=== PATIENT | male | born 1950 | race Caucasian/White ===

== ENCOUNTER 2019-01-26 20:53 | Emergency (ER) | payer OTHER, MEDICARE ==
[~2019-01-26] VITALS: Ht 177.8 cm; Wt 99.8 kg
[2019-01-26] MEDS ORDERED: ORPH-16 PO (21:41)
[2019-01-26] MEDS ORDERED: HYDR-3165 PO (21:41)
--- NOTE | 2019-01-26 21:42 | PHYS DOC ---
Past History Past Medical History: CAD, Diabetes Past Medical History CKD3 Smoking: Non-smoker Alcohol Use: Occasionally Drug Use: None Adult General Chief Complaint Chief Complaint: LOWER BACK PAIN OR INJURY HPI HPI Patient is a 68-year-old male presents with lower back pain. He states that the pain started this morning with no inciting event. The pain is bilateral lumbar region worse on the right. He rates it as a 10/10 pain while it spasms, and a 7/ 10 pain while his back is having spasms. He took ibuprofen which did not help. Symptoms have not varied based on the time of day. He states there is pain radiating down both lateral and posterior thighs to the knee. This is a known issue because the patient has chronic sciatica and low back pain with discopathy. Denies loss of bowel/bladder. Denies hematuria or dysuria. Review of Systems Review of Systems Constitutional: Denies fever or chills [] Eyes: Denies change in visual acuity, redness, or eye pain [] HENT: Denies nasal congestion or sore throat [] Respiratory: Denies cough or shortness of breath [] Cardiovascular: Denies chest pain or palpitations GI: Denies abdominal pain, nausea, vomiting, or diarrhea [] : Denies dysuria or hematuria [] Musculoskeletal: Admits back pain. Denies flank pain Integument: Denies rash or skin lesions [] Neurologic: Denies headache, focal weakness or sensory changes [] Complete systems were reviewed and found to be within normal limits, except as documented in this note. Allergies Allergies Allergies Coded Allergies Type Severity Reaction Last Updated Verified No Known Drug Allergies 01/26/19 No Physical Exam Physical Exam Constitutional: Well developed, well nourished, no acute distress, non-toxic appearance. Patient had intermittent guarding with a quick jerk towards trunk extension during interview, seemingly with a back spasm[] HENT: Normocephalic, atraumatic, nose normal. [] Eyes: PERRL, EOMI, conjunctiva normal, no discharge. [] Neck: Normal range of motion, no tenderness, supple, no stridor. [] Cardiovascular: Heart rate regular rhythm, no murmur [] Lungs & Thorax: Bilateral breath sounds clear to auscultation [] Abdomen: Soft, no tenderness Skin: Warm, dry, no erythema, no rash. [] Back: Significantly tender to palpation bilateral lumbar region R > L, no CVA tenderness. [] Extremities: No tenderness, no cyanosis, no clubbing, ROM intact, no edema. [] Neurologic: Alert and oriented, normal motor function, normal sensory function, no focal deficits noted. [] Psychologic: Affect normal, judgement normal, mood normal. [] EKG EKG [] Radiology/Procedures Radiology/Procedures [] Course & Med Decision Making Course & Med Decision Making Pertinent Labs and Imaging studies reviewed. (See chart for details) Patient is a 68-year-old male presents to the ED with back pain. Patient has no loss of bowel or bladder, saddle anesthesia, or any new neurologic symptoms. Physical exam suggests low back spasm. Treated with Norflex, dexamethasone, and [place]. Suggest patient follow-up with PCP 1-2 weeks after discharge and with his pain clinic on his appointment to establish care. Patient stable for discharge with outpatient follow-up with PCP. Discussed findings and plan with patient and family, who acknowledge understanding and agreement. Dragon Disclaimer Dragon Disclaimer This electronic medical record was generated, in whole or in part, using a voice recognition dictation system. Departure Departure: Impression: Primary Impression: Back pain Disposition: HOME, SELF-CARE Condition: STABLE Patient Instructions: Back Pain, Adult, [id number] Scripts Orphenadrine Citrate (ORPHENADRINE CITRATE) 100 Mg Tablet.er 1 TAB PO BID PRN for MUSCLE SPASMS, #14 TAB 0 Refills Prov: VIRGINIA RIVERA DO 01/26/19 Hydrocodone Bit/Acetaminophen (NORCO 5-325 TABLET) 1 Each Tablet 1 TAB PO Q6HRS PRN for PAIN, #10 TAB Prov: VIRGINIA RIVERA DO 01/26/19 Problem Qualifiers Primary Impression: Back pain Back pain location: low back pain Chronicity: acute Back pain laterality: bilateral Sciatica presence: with sciatica Sciatica laterality: bilateral sciatica Qualified Codes: M54.42 - Lumbago with sciatica, left side; M54.41 - Lumbago with sciatica, right side VIRGINIA RIVERA DO Jan 26, 2019 21:42
[2019-01-26] MEDS ORDERED: DEXAMETHASONE 4 MG TABLET PO ONE (21:45)
[2019-01-26] MEDS ORDERED: ORPHENADRINE CITRATE 60 MG/2 ML VIAL. IM ONE (21:45)
[2019-01-26] MEDS ORDERED: HYDROcodone/APAP 5/325MG 1 TAB TABLET PO ONE (21:45)
[2019-01-26 22:15] VITALS: BP 127/59
== END 2019-01-26 22:19 | disposition home or self-care (01) ==
LOC: ER 20:53
DX: M54.41 Lumbago with sciatica, right side (principal); E11.22 Type 2 diabetes mellitus with diabetic chronic kidney disease; N18.3 Chronic kidney disease, stage 3 (moderate); I25.10 Atherosclerotic heart disease of native coronary artery without angina pectoris
CPT/HCPCS: 96372; 99283; J2360; J8540